=== PATIENT | female | born 1975 | race Caucasian/White ===

== ENCOUNTER 2017-01-18 15:56 | Emergency (ER) | payer MEDICAID, OTHER ==
[2017-01-18] MEDS ORDERED: KETOROLAC TROMETHAMINE 60 MG/2 ML VIAL IM ONE ×2 (16:44→16:46)
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
[2017-01-18 17:36] VITALS: BP 118/72
== END 2017-01-18 17:32 | disposition home or self-care (01) ==
LOC: ER 15:56
DX: S39.012A Strain of muscle, fascia and tendon of lower back, initial encounter (principal); Y04.2XXA Assault by strike against or bumped into by another person, initial encounter